=== PATIENT | male | born 1980 | race Caucasian/White ===

== ENCOUNTER 2022-02-16 10:34 | Emergency (ER) | payer OTHER ==
[~2022-02-16] VITALS: Ht 175.3 cm; Wt 84.5 kg
[~2022-02-16 10:34] MED LIST: BACL10TA2 PO; DICL25TA11 PO; GABA-282 PO; LORA1TAB4 PO; ZOLO100T PO
[2022-02-16 11:10] LABS: BASO % 0.4 % (0.0-1.0); EOS # 0.1 10^3/uL (0.0-0.5); EOS % 0.7 % (0.0-3.0); HEMATOCRIT 39.9 % (42.0-52.0); HEMOGLOBIN 14.2 g/dl (13.5-17.5); LYMPH # 1.5 10^3/uL (1.5-5.0); LYMPH % 14.2 % (24.0-44.0); MEAN CORPUSCULAR HEMOGLOBIN 31.8 pg (27.0-33.0); MEAN CORPUSCULAR HGB CONC 35.6 g/dl (32.0-36.5); MEAN CORPUSCULAR VOLUME 89.5 fl (80.0-96.0); MONO # 0.6 10^3/uL (0.0-0.8); MONO % 5.5 % (2.0-8.0); NEUTROPHILS % 78.8 % (36.0-66.0); PLATELET COUNT, AUTOMATED 179 10^3/uL (150-450); RED BLOOD COUNT 4.46 10^6/uL (4.30-6.10); WHITE BLOOD COUNT 10.2 10^3/uL (4.0-10.0)
[2022-02-16] MEDS ORDERED: ISOVUE-370 76% 100ML VIAL As Ordered ONE (11:11)
[2022-02-16 11:21] LABS: INR 0.88; PROTHROMBIN TIME 12.4 SECONDS (12.7-14.5)
[2022-02-16 11:39] LABS: ALBUMIN 4.2 GM/DL (3.2-5.2); BILIRUBIN,DIRECT 0.3 MG/DL (0.0-0.2); BILIRUBIN,TOTAL 0.7 MG/DL (0.2-1.0); TOTAL PROTEIN 7.4 GM/DL (6.4-8.2)
[2022-02-16] MEDS ORDERED: KETOROLAC 30 MG/ML 1ML VIAL IV ONE (12:50)
[2022-02-16] MEDS ORDERED: KETO10TAB PO (12:51)
[2022-02-16 13:22] VITALS: BP 132/72
== END 2022-02-16 13:31 | disposition home or self-care (01) ==
LOC: M ED 10:34
DX: S32.029A Unspecified fracture of second lumbar vertebra, initial encounter for closed fracture (principal); S32.039A Unspecified fracture of third lumbar vertebra, initial encounter for closed fracture; W11.XXXA Fall on and from ladder, initial encounter; Y92.89 Other specified places as the place of occurrence of the external cause; F17.200 Nicotine dependence, unspecified, uncomplicated; Z79.899 Other long term (current) drug therapy; Z88.5 Allergy status to narcotic agent
CPT/HCPCS: 70450; 71260; 72125; 74177; 80047; 80076; 83690; 85025; 85610; 86850; 86900; 86901; 93041; 96374; 99284; J1885; Q9967

== ENCOUNTER 2022-07-02 14:55 | Outpatient (RCR) | payer OTHER ==
[~2022-07-02 14:55] MED LIST changes: +KETO10TAB PO
== END 2022-07-25 ==
LOC: M PT 14:55
PROVIDERS: ATTEND Student in an Organized Health Care Education/Training Program
DX: M54.16 Radiculopathy, lumbar region (principal)

== ENCOUNTER 2023-08-20 07:53 | Day surgery (SDC) | payer OTHER ==
[~2023-08-20] VITALS: Ht 175.3 cm; Wt 91.9 kg
[~2023-08-20 07:53] MED LIST changes: +DULO30CA9 PO; +DULO60CA35 PO; +GABA800T4 PO; +LIDOCAINE W/EPINEPHRINE 1% 20ML VIAL XX ONE; +LORA1TAB23 PO; -LORA1TAB4 PO; +SODIUM BICARBONATE 8.4% INJ 50MEQ 50ML VIAL XX ONE
[2023-08-20] MEDS ORDERED: BACITRACIN OINTMENT 30GM TUBE As Ordered ONE (10:06)
[2023-08-20 10:43] VITALS: BP 140/82; TEMP 98.2; O2SAT 98
== END 2023-08-20 11:07 | disposition home or self-care (01) ==
LOC: M SDC 07:53
PROVIDERS: ATTEND Orthopaedic Surgery Hand Surgery
DX: G56.01 Carpal tunnel syndrome, right upper limb (principal)

== ENCOUNTER 2024-01-31 15:42 | Emergency (ER) | payer OTHER ==
[~2024-01-31] VITALS: Ht 175.3 cm; Wt 87.8 kg
[~2024-01-31 15:42] MED LIST changes: -LIDOCAINE W/EPINEPHRINE 1% 20ML VIAL XX ONE; -SODIUM BICARBONATE 8.4% INJ 50MEQ 50ML VIAL XX ONE
[2024-01-31] MEDS ORDERED: MELO15TA28 PO (16:03)
[2024-01-31] MEDS ORDERED: TIZA2CAP PO (16:03)
[2024-01-31 17:09] LABS: BASO # 0.1 10^3/uL (0.0-0.2); BASO % 0.7 % (0.0-1.0); EOS # 0.2 10^3/uL (0.0-0.5); EOS % 2.8 % (0.0-3.0); HEMATOCRIT 39.3 % (42.0-52.0); HEMOGLOBIN 13.6 g/dl (13.5-17.5); LYMPH # 2.1 10^3/uL (1.5-5.0); LYMPH % 31.8 % (24.0-44.0); MEAN CORPUSCULAR HEMOGLOBIN 31.1 pg (27.0-33.0); MEAN CORPUSCULAR HGB CONC 34.6 g/dl (32.0-36.5); MEAN CORPUSCULAR VOLUME 89.9 fl (80.0-96.0); MONO # 0.5 10^3/uL (0.0-0.8); MONO % 6.7 % (2.0-8.0); NEUTROPHILS # 3.9 10^3/uL (1.5-8.5); NEUTROPHILS % 57.7 % (36.0-66.0); PLATELET COUNT, AUTOMATED 194 10^3/uL (150-450); RED BLOOD COUNT 4.37 10^6/uL (4.30-6.10); WHITE BLOOD COUNT 6.7 10^3/uL (4.0-10.0)
[2024-01-31 17:39] VITALS: TEMP 97.6
[2024-01-31 17:41] LABS: CK-MB VALUE MASS 3.1 NG/ML (<3.6)
[2024-01-31 17:43] LABS: ALBUMIN 3.9 G/DL (3.2-5.2); ALKALINE PHOSPHATASE 75 U/L (46-116); ALT/SGPT 26 U/L (7.0-40); AST/SGOT 15 U/L (<34); BILIRUBIN,DIRECT 0.1 MG/DL (<0.4); BILIRUBIN,TOTAL 0.4 MG/DL (0.3-1.2); BLOOD UREA NITROGEN 18 MG/DL (9-23); CALCIUM LEVEL 9.3 MG/DL (8.5-10.1); CARBON DIOXIDE LEVEL 28 MMOL/L (20-31); CHLORIDE LEVEL 108 MMOL/L (98-107); CPK CREATINE PHOSPHOKINASE 262 U/L (46-171); CREATININE FOR GFR 1.09 MG/DL (0.70-1.30); GLOMERULAR FILTRATION RATE > 60.0 (>60); GLUCOSE, FASTING 93 MG/DL (60-100); MB/CK RELATIVE INDEX 1.18 (< OR =4); POTASSIUM SERUM 4.4 MMOL/L (3.5-5.1); SODIUM LEVEL 141 MMOL/L (136-145); TOTAL PROTEIN 6.7 G/DL (5.7-8.2)
[2024-01-31 17:45] LABS: THYROID STIMULATING HORMONE 3.308 uIU/ML (0.55-4.78)
[2024-01-31] MEDS: diazePAM 5MG TABLET PO ONE (18:58)
[2024-01-31] MEDS: LIDOCAINE 5% (LIDODERM) PATCH TD ONE (18:59)
[2024-01-31] MEDS: KETOROLAC 30 MG/ML 1ML VIAL IM ONE (18:59)
[2024-01-31] MEDS ORDERED: PROT20TA11 PO (19:52)
[2024-01-31 20:03] VITALS: BP 127/79; O2SAT 99
== END 2024-01-31 20:04 | disposition home or self-care (01) ==
LOC: M ED 15:42
DX: M54.40 Lumbago with sciatica, unspecified side (principal); R11.10 Vomiting, unspecified; I45.10 Unspecified right bundle-branch block; F43.10 Post-traumatic stress disorder, unspecified; F12.10 Cannabis abuse, uncomplicated; F10.10 Alcohol abuse, uncomplicated; Z88.5 Allergy status to narcotic agent; Z79.899 Other long term (current) drug therapy
CPT/HCPCS: 80048; 80076; 82550; 82553; 84443; 84484; 85025; 93005; 96372; 99284; J1885